=== PATIENT | female | born 1955 | race Hispanic/Latino ===

== ENCOUNTER 2018-02-27 11:32 | Outpatient (CLI) | payer OTHER ==
--- NOTE | 2018-02-27 14:55 | MMO ---
BILATERAL DIGITAL SCREENING MAMMOGRAMS: Date: 02/27/18 HISTORY: 62-year-old female presents for digital screening mammogram. COMPARISON: 03/04/17, 12/26/15, 07/19/13. FINDINGS: This patient's mammogram was interpreted with the assistance of computer-aided detection. Scattered areas of fibroglandular density are noted bilaterally. There are some potentially new areas of nodularity in the central aspect of the left breast which ne ed additional imaging. There are stable typically benign calcifications bilaterally. IMPRESSION: Several new areas of nodularity in the central left breast. BIRADS 0: Incomplete: Need Additional Imaging Evaluation and/or Prior Mammograms for Comparison Follow-up left unilateral diagnostic mammogram, including 3D imaging with spot CC, MLO, and mediolate ral views. In addition, an ultrasound should be scheduled and performed if needed. The facility will notify patient of need for additional imaging services. POS: VIVIANA
== END 2018-02-27 11:33 | disposition home or self-care (01) ==
LOC: SCSMAMMO 11:32
PROVIDERS: ATTEND Family Medicine
DX: Z12.31 Encounter for screening mammogram for malignant neoplasm of breast (principal)
CPT/HCPCS: 77067

== ENCOUNTER 2018-04-25 17:41 | Inpatient (IN) | payer SELFPAY ==
[2018-04-25 18:19] LABS: Hemoglobin 6.3 g/dL (12.0-16.0); Mean Corpuscular Hemoglobin 24.9 pg (27.0-31.0); Platelet Count 332 thou/uL (130-400); RBC Distribution Width 24.9 % (11.5-14.5); Red Blood Cell (RBC) Count 2.55 mill/uL (4.20-5.40); White Blood Cell (WBC) Count 12.2 thou/uL (4.8-10.8)
[2018-04-25 18:39] LABS: ALT (SGPT) 28 U/L (8-55); AST (SGOT) 24 U/L (5-34); Albumin 3.7 g/dL (3.4-4.8); Alkaline Phosphatase 97 U/L (40-150); Anion Gap 11 mmol/L (10-20); Anisocytosis MODERATE=16-30 cells (100X) (0-5/hpf); BUN (Urea Nitrogen) 18 mg/dL (9.8-20.1); Band 3 % (5-11); Bilirubin, Total 0.3 mg/dL (0.2-1.2); Calc. Creatinine Clearance 0 mL/min (70-130); Calcium 8.8 mg/dL (7.8-10.44); Carbon Dioxide 24 mmol/L (23-31); Chloride 106 mmol/L (98-107); Estimated GFR-MDRD 72; Globulin 2.9 g/dL (2.4-3.5); Glucose 96 mg/dL (80-115); Hypochromia SLIGHT = 6-15 cells (100X) (0-5/hpf); Lymphocytes 5 % (21-51); MDiff Complete? YES; Metamyelocyte 1 % (0-0); Monocytes 4 % (0-10); Neutrophil 87 % (42-75); Platelet Morphology Comment Appears Adequate; Polychromasia SLIGHT = 2-3 cells (100X) (0-2/hpf); Potassium 3.8 mmol/L (3.5-5.1); Protein, Total 6.6 g/dL (6.0-8.3); Sodium 137 mmol/L (136-145)
[2018-04-25 18:53] LABS: PTT 26.3 SEC (22.9-36.1); Prothrombin Time 13.6 SEC (12.0-14.7)
[2018-04-25] MEDS ORDERED: Acetaminophen 500 MG TAB PO PRN (22:01)
[2018-04-25] MEDS ORDERED: Ondansetron PF 4 MG/2 ML Vial IVP PRN (22:01)
[2018-04-25] MEDS ORDERED: Ondansetron ODT 4 MG TAB PO PRN (22:01)
[2018-04-25] MEDS ORDERED: Pantoprazole 40 MG VIAL IVP SCH (22:30)
[2018-04-25 22:37] LABS: Iron 16 ug/dL (50-170); Iron Binding Capacity, Total 453 mcg/dL (265-497)
[2018-04-25 23:16] VITALS: BMI 35.2
[2018-04-25] MEDS: Sodium Chloride 0.9% 1,000 ML IV SCH (23:49)
--- NOTE | 2018-04-26 01:48 | HP ---
PRIMARY CARE PROVIDER: Dr. Corrina Spann. CHIEF COMPLAINT: Shortness of breath and fatigue. HISTORY OF PRESENT ILLNESS: This is a 63-year-old female who presented to [facility] Emergency Department at the direction of her primary care provider after patient was discovered with a hemoglobin of 5.8. The patient states she has a long-standing history of anemia diagnosed approximately 7 years prior to this evaluation, taking chronic iron supplementation. The patient states she initially took iron 3 times daily and has weaned herself down to once daily as her hemoglobin levels had normalized. The patient states her last level was in the normal range approximately 3 months prior to this evaluation. The patient states she has dark stool, but has been on iron supplementation and is unsure if this is blood. The patient denied any hematemesis or bright red blood per rectum. The patient denied any weight changes or decreased appetite. The patient has noticed increasing fatigue, shortness of breath, especially when taking stairs in her home. The patient denied any diarrhea, travel history or recent exposures. The patient does admit undergoing endoscopy with colonoscopy x3 without specific findings noted. The patient does also admits to taking omeprazole on a daily basis as well as ibuprofen 800 mg due to fibromyalgia. In the emergency room, patient underwent general evaluation with a hemoglobin noted at 6.3. The patient was typed and crossed for 2 units of packed red blood cells, receiving the first unit currently. PAST MEDICAL HISTORY: 1. Fibromyalgia. 2. Chronic anemia with iron deficiency. 3. Hypertension. 4. Hyperlipidemia. 5. Gastroesophageal reflux. PAST SURGICAL HISTORY: 1. Status post cholecystectomy. 2. Status post hysterectomy. 3. Status post colonoscopy x3. CURRENT MEDICATIONS: 1. Omeprazole 20 mg p.o. daily. 2. Iron 106 mg b.i.d. 3. Lisinopril/HCTZ 20/25 mg 1 tab p.o. daily. 4. Estradiol 1 mg p.o. daily. 5. Citalopram 20 mg p.o. daily. 6. Flexeril 10 mg p.o. at bedtime. 7. [place]-3 fatty acids 1 tablet p.o. daily. 8. Ibuprofen 800 mg p.o. daily. ALLERGIES: NO KNOWN DRUG ALLERGIES. FAMILY HISTORY: Multiple sisters with fibromyalgia. SOCIAL HISTORY: The patient is , accompanied by her son in the emergency room. No alcohol, tobacco, or illicit drug use. Functional of all activities of daily living. REVIEW OF SYSTEMS: CONSTITUTIONAL: Negative for weight loss or gain, ability to conduct usual activities. SKIN: Negative for rash, itching. EYES: Negative for double vision, pain. ENT/MOUTH: Negative for nose bleeding, neck stiffness, pain, tenderness. CARDIOVASCULAR: Negative for palpitations, dyspnea on exertion, orthopnea. RESPIRATORY: Negative for shortness of breath, wheezing, cough, hemoptysis, fever or night sweats. GASTROINTESTINAL: Negative for poor appetite, abdominal pain, heartburn, nausea, vomiting, constipation, or diarrhea. GENITOURINARY: Negative for urgency, frequency, dysuria, nocturia. MUSCULOSKELETAL: Negative for pain, swelling. NEUROLOGIC/PSYCHIATRIC: Negative for anxiety, depression. ALLERGY/IMMUNOLOGIC: Negative for skin rash, bleeding tendency. Otherwise negative except as stated per HPI. PHYSICAL EXAMINATION: VITAL SIGNS: On admission, blood pressure 152/79, pulse 88, respiratory rate is 16, temperature 98.2 degrees Fahrenheit, O2 saturation 100% on room air. GENERAL APPEARANCE: This is a 63-year-old female, alert and oriented x3, pleasant, in no acute distress. HEENT: Pupils are equal, round, reactive to light and accommodation. Extraocular muscles are intact. No scleral icterus. No conjunctival injection. Nares patent. OP is clear. Teeth in good repair. NECK: Supple. No cervical adenopathy. No thyromegaly. No carotid bruits. No JVD appreciated. Cervical spine with full active and passive range of motion. No meningeal signs noted. CHEST: Lungs are clear to auscultation bilaterally. CARDIOVASCULAR EXAM: S1 and S2 without noted murmur, rub, or gallop. ABDOMEN: Obese, soft, nontender, and nondistended. Bowel sounds are positive in all 4 quadrants. No hepatosplenomegaly. No abdominal bruits. No rebound or guarding appreciated. EXTREMITIES: Warm and dry with fair turgor. Pale appearing. Capillary refill less than 2 seconds. Pulses are palpable distally at the dorsalis pedis, posterior tibial, and popliteal arteries bilaterally. Capillary refill less than 2 seconds. NEUROLOGIC: Cranial nerves 2 through 12 are grossly intact. No focal or lateralizing signs appreciated. PERTINENT LAB AND X-RAY FINDINGS: Complete metabolic profile within normal limits. TSH 1.31. CBC showed a white blood cell count of 12.2, hemoglobin 6.3, hematocrit 21, MCV 83, platelet count 332, with 87% neutrophilia. PT 13.6, INR 1.0, PTT 26.3. Telemetry monitoring shows sinus mechanism with heart rates in the 70s. ASSESSMENT/PLAN: 1. Symptomatic anemia. The patient will be admitted to the medical floor. Type and cross for 2 units of packed red blood cells. Serial CBC monitoring. Protonix 40 mg IV b.i.d. Consult GI Service in the a.m. for further evaluation and consideration for endoscopy. Concern for potential gastric or duodenal ulcer given long-term nonsteroidal anti-inflammatory drugs use. 2. Chronic normocytic anemia with iron deficiency component, see #1 above. Check stool guaiac. Repeat CBC in the a.m. 3. Hypertension. Resume home antihypertensive regimen and monitor clinical response. 4. Gastroesophageal reflux disease. Continue Protonix 40 mg IV b.i.d. Gastroenterology consult for consideration of endoscopy. 5. Depression. Resume citalopram 20 mg p.o. q.a.m. 6. Prophylaxis. Sequential compression devices while in bed. Protonix 40 mg IV q.12 hours. CODE STATUS: Full. Surrogate medical decision maker is patient's son. Job ID: [id number]
[2018-04-26] MEDS ORDERED: Melatonin 3 MG TAB PO SCH (02:45)
[2018-04-26] MEDS: Sodium Chloride 0.9% 1,000 ML IV SCH (06:03)
[2018-04-26 06:54] LABS: Reticulocyte Count 8.5 % (0.5-1.5)
[2018-04-26 07:00] LABS: Hemoglobin 7.7 g/dL (12.0-16.0); Mean Corpuscular HGB CONC 31.4 g/dL (32.0-36.0); Mean Corpuscular Hemoglobin 26.1 pg (27.0-31.0); Mean Corpuscular Volume 83.2 fL (78.0-98.0); Mean Platelet Volume 8.2 fL (7.4-10.4); Platelet Count 288 thou/uL (130-400); RBC Distribution Width 22.1 % (11.5-14.5); Red Blood Cell (RBC) Count 2.96 mill/uL (4.20-5.40); White Blood Cell (WBC) Count 9.5 thou/uL (4.8-10.8)
[2018-04-26 07:10] LABS: ALT (SGPT) 20 U/L (8-55); AST (SGOT) 17 U/L (5-34); Albumin 3.1 g/dL (3.4-4.8); Alkaline Phosphatase 78 U/L (40-150); Anion Gap 9 mmol/L (10-20); BUN (Urea Nitrogen) 11 mg/dL (9.8-20.1); Bilirubin, Total 0.5 mg/dL (0.2-1.2); Calc. Creatinine Clearance 100 mL/min (70-130); Calcium 8.1 mg/dL (7.8-10.44); Carbon Dioxide 24 mmol/L (23-31); Chloride 109 mmol/L (98-107); Estimated GFR-MDRD 78; Globulin 2.3 g/dL (2.4-3.5); Glucose 92 mg/dL (80-115); Iron 15 ug/dL (50-170); Iron Binding Capacity, Total 404 mcg/dL (265-497); Potassium 3.7 mmol/L (3.5-5.1); Protein, Total 5.4 g/dL (6.0-8.3); Sodium 138 mmol/L (136-145)
[2018-04-26 08:30] LABS: Eosinophils 3 % (0-10); Lymphocytes 12 % (21-51); Monocytes 2 % (0-10); Nucleated RBC 1 % (0)
[2018-04-26 08:33] LABS: Anisocytosis MODERATE=16-30 cells (100X) (0-5/hpf); Hypochromia SLIGHT = 6-15 cells (100X) (0-5/hpf); Poikilocytosis SLIGHT = 6-15 cells (100X) (0-5/hpf); Polychromasia MODERATE = 3-4 cells (100X) (0-2/hpf)
[2018-04-26 08:35] LABS: MDiff Complete? YES
[2018-04-26 08:36] LABS: Neutrophil 83 % (42-75)
[2018-04-26] MEDS ORDERED: Pantoprazole 40 MG VIAL IVP SCH (09:00)
[2018-04-26] MEDS ORDERED: Iron, Sodium Ferric Gluconate 250 MG, Admixture Fee 1 EACH in Sodium Chloride 0.9% 250 ... IVPB SCH (10:00)
--- NOTE | 2018-04-26 10:47 | CON ---
DATE OF CONSULTATION: PRIMARY CARE PHYSICIAN: Dr. Corrina Spann. HISTORY OF PRESENT ILLNESS: Ms. Mercado is a 63-year-old female, she sees Dr. Corrina Spann for primary care at [facility]. She notes she has had a long history of anemia. She reports that her primary physician discovered a hemoglobin of 5.8. Apparently about 3 or 4 months ago, it had been almost normal when she was taking iron. She has felt a little bit fatigued. She denies any melena, hematochezia, hematemesis, abdominal pain, weight loss, or reflux. Apparently, she has had issues with chronic anemia for many years. About 5 years ago, she had a colonoscopy by Dr. Pierce in [place], which was reportedly normal. She has had endoscopy before at [facility], both upper and lower, which reportedly normal. She reports that she has been told to do colonoscopies every 10 years and she has had 2 so far. She was taking iron 3 times a day, then cut to twice a day, then ran out. Her stool was dark when she was on iron. It was not when she was not taking it. She takes omeprazole daily. She does take ibuprofen occasionally for fibromyalgia symptoms, mainly arthralgias and myalgias. She has been transfused 2 units of blood. I have been asked to see her about possibly performing EGD to rule out ulcer. She does note that she takes omeprazole daily for her reflux. PAST MEDICAL HISTORY: Fibromyalgia, chronic anemia with iron deficiency, hypertension, hyperlipidemia, and reflux. PAST SURGICAL HISTORY: Cholecystectomy, hysterectomy, previous colonoscopy at least twice and has multiple upper endoscopy. She reports these have all been nondiagnostic for anemia. CURRENT MEDICATIONS: 1. Omeprazole. 2. Iron. 3. Lisinopril. 4. Hydrochlorothiazide. 5. Estradiol. 6. Citalopram. 7. Flexeril. 8. Ibuprofen. 9. [place]-3. ALLERGIES: NONE KNOWN. FAMILY HISTORY: Sister with fibromyalgia. She may have 1 sister with anemia. SOCIAL HISTORY: The patient is . Does not smoke, drink, or use drugs. REVIEW OF SYSTEMS: GENERAL: She feels well except for the weakness. She has had no weight loss. She has had good appetite. She has had no dysphagia, odynophagia, nausea, vomiting, melena, hematemesis, hematochezia, or abdominal pain. HEENT: Normal. CARDIAC: Positive for some dyspnea on exertion. Negative for shortness of breath or chest pain. RESPIRATORY: Negative for cough. : Negative for hematuria. Negative for vaginal bleeding. MUSCULOSKELETAL: Positive for arthralgias and myalgias chronically. MEDICATIONS: Here in the hospital, she is on; 1. Tylenol. 2. Zofran. 3. Protonix IV q.12. 4. Normal saline. PHYSICAL EXAMINATION: VITAL SIGNS: Temperature is 97, pulse 73, and blood pressure 143/68. HEENT: In general, oropharynx without lesion. NECK: Supple. No adenopathy. LUNGS: Clear. HEART: Regular rate and rhythm without clicks or murmurs. ABDOMEN: Soft and nontender with no rebound or guarding. EXTREMITIES: No clubbing, cyanosis, or edema. LABORATORY DATA: White count 9.5, hemoglobin 7.7 today and it was 6.3 yesterday, and platelet count 288. INR 1. Comprehensive metabolic profile normal. BUN and creatinine were 11 and 0.7. Liver function tests were normal. Iron was 16 and 15 on admission. ASSESSMENT: Iron deficiency anemia, chronic with no signs of overt gastrointestinal bleeding. She is on a nonsteroidal anti-inflammatory drug, but she is also on a proton pump inhibitor. Nonsteroidal anti-inflammatory drugs could be leading to anemia from ulcers in the small bowel or colon, which can chronically cause anemia. She would be unlikely to have upper GI tract ulcers being on a proton pump inhibitor, which will be protective. In any event, she refuses an endoscopy. She states she has not noted any bleeding. RECOMMENDATIONS: In light of refusal for endoscopy, I would recommend that she have IV iron before discharge. She should be on a PPI. Should stop NSAID. 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 and her primary care physician. It may be reasonable to check a celiac panel as well with tissue transglutaminase to rule out underlying celiac, which can cause iron deficiency and I will order that for her. At this time, I will sign off. If I can be of any further assistance in her care, please do not hesitate to contact me. Job ID: [id number]
[2018-04-26 11:56] VITALS: BP 113/70; TEMP 97.8
--- NOTE | 2018-04-26 20:26 | DIS ---
DATE OF ADMISSION: 04/25/2018 DATE OF DISCHARGE: 04/26/2018 PRIMARY CARE PROVIDER: Dr. Corrina Spann. DISCHARGE DIAGNOSES: 1. Symptomatic anemia, multifactorial, improved. 2. Chronic normocytic anemia with iron deficiency component, status post 2 units of packed red blood cells. 3. Hypertension, stable. 4. Gastroesophageal reflux disease, stable. 5. Depression, stable. CONSULTATIONS: John Villa MD with GI Service. PERTINENT LAB AND X-RAY FINDINGS: Iron level 15, TIBC 404, and ferritin 11.36. LFTs within normal limits. Albumin ranged between 3.1 to 3.7. TSH 1.31. CBC showed a white blood cell count ranged between 9.5 to 12.2, hemoglobin ranged between 6.3 to 7.7, MCV 83, platelet count ranged between 288 to 332, and reticulocyte count 8.5. HOSPITAL COURSE: The patient was admitted after presenting with symptomatic anemia with fatigue and shortness of breath. The patient with initial hemoglobin of 5.8, receiving 2 units of packed red blood cells with hemoglobin increasing to 7.7. The patient was evaluated by the GI Service for consideration of endoscopy. However, the patient did not want to pursue endoscopy during this hospital course. The patient was recommended to receive an iron infusion, which she tolerated without difficulty as well as the 2 units of packed red blood cells. The patient received IV Protonix as well as IV fluids and remained clinically stable. Current recommendations are for outpatient evaluation with GI followup and potential repeat endoscopy as well as discontinuation of NSAIDs. The patient overall clinically stable throughout the hospital course. I have examined the patient at the time of discharge and discussed followup instructions. The patient verbalizes understanding and in agreement and ready for discharge on 04/26/2018. DISCHARGE MEDICATIONS: 1. Celexa 20 mg p.o. daily. 2. Flexeril 10 mg p.o. daily. 3. Estradiol 1 mg p.o. daily. 4. Tandem Plus 1 capsule p.o. b.i.d. 5. Lisinopril/hydrochlorothiazide 20/25 mg 1 tablet p.o. daily. 6. [place]-3 fatty acids 1 capsule p.o. daily. 7. Omeprazole 20 mg p.o. daily. FOLLOWUP: The patient to follow up with her primary care provider, Dr. Corrina Spann on 04/30/2018. CONDITION ON DISCHARGE: Stable. ACTIVITY: Ad-verónica. SPECIAL INSTRUCTIONS: Repeat CBC at first followup visit with primary care provider. DIET: Regular. CODE STATUS: Full. DISPOSITION: Home on 04/26/2018. Job ID: [id number]
[2018-04-29 15:47] LABS: EliA Celiac New Method **** NEW METHOD ****; t-Transglutaminase (tTG) IgA 0.3 EliAU/mL (<7 Negative)
== END 2018-04-26 15:30 | disposition home or self-care (01) | DRG 812 ==
LOC: ERS 17:41 → SURG A 18:50
PROVIDERS: ADMIT Family Medicine; ATTEND Family Medicine
PROC: 30233N1 Transfusion of Nonautologous Red Blood Cells into Peripheral Vein, Percutaneous Approach (ICD-10-PCS; principal; 2018-04-25)
DX: D50.9 Iron deficiency anemia, unspecified (principal); I10 Essential (primary) hypertension; E78.5 Hyperlipidemia, unspecified; K21.9 Gastro-esophageal reflux disease without esophagitis; F32.9 Major depressive disorder, single episode, unspecified; Z90.49 Acquired absence of other specified parts of digestive tract; Z90.710 Acquired absence of both cervix and uterus; Z79.899 Other long term (current) drug therapy
CPT/HCPCS: 36415; 36430; 80053; 82728; 83516; 83540; 83550; 84443; 85007; 85025; 85027; 85046; 85610; 85730; 86850; 86900; 86901; 99285; C9113; J2916; J7050; P9016

== ENCOUNTER 2021-08-31 15:26 | Outpatient (CLI) | payer MEDICARE | END 2021-08-31 15:27 | disposition home or self-care (01) | LOC: BICMAMMO 15:26 | PROVIDERS: ATTEND Family Medicine | DX: Z12.31 Encounter for screening mammogram for malignant neoplasm of breast (principal); Z13.820 Encounter for screening for osteoporosis; Z78.0 Asymptomatic menopausal state; Z80.3 Family history of malignant neoplasm of breast; M85.851 Other specified disorders of bone density and structure, right thigh | CPT/HCPCS: 77063; 77067; 77080 ==

== ENCOUNTER 2022-11-14 13:15 | Outpatient (CLI) | payer OTHER | END 2022-11-14 13:16 | disposition home or self-care (01) | LOC: BICMAMMO 13:15 | PROVIDERS: ATTEND Family Medicine | DX: Z12.31 Encounter for screening mammogram for malignant neoplasm of breast (principal); Z80.3 Family history of malignant neoplasm of breast | CPT/HCPCS: 77063; 77067 ==

== ENCOUNTER 2025-02-21 12:58 | Outpatient (CLI) | payer OTHER | END 2025-02-21 12:59 | disposition home or self-care (01) | LOC: SCSBT 12:58 | PROVIDERS: ATTEND Family Medicine | DX: M85.851 Other specified disorders of bone density and structure, right thigh (principal) | CPT/HCPCS: 77080 ==

== ENCOUNTER 2025-03-08 14:39 | Outpatient (CLI) | payer OTHER | END 2025-03-08 14:40 | disposition home or self-care (01) | LOC: BICMAMMO 14:39 | PROVIDERS: ATTEND Family Medicine | DX: Z12.31 Encounter for screening mammogram for malignant neoplasm of breast (principal); Z80.3 Family history of malignant neoplasm of breast | CPT/HCPCS: 77063; 77067 ==